=== PATIENT | male | born 1960 | race African-American/Black ===

== ENCOUNTER 2021-01-04 08:46 | Emergency (ER) | payer MEDICARE, MEDICAID ==
[~2021-01-04] VITALS: Ht 177.8 cm; Wt 87.0 kg
[2021-01-04 09:10] VITALS: BP 138/77
== END 2021-01-04 10:41 | disposition home or self-care (01) ==
LOC: ER 08:46
DX: Z13.9 Encounter for screening, unspecified (principal)
CPT/HCPCS: 99281

== ENCOUNTER 2021-06-08 04:27 | Emergency (ER) | payer MEDICARE, MEDICAID ==
[~2021-06-08] VITALS: Ht 172.7 cm; Wt 82.0 kg
[2021-06-08 05:53] LABS: EOSINOPHILS % 5.8 % (0.0-5.0); HEMATOCRIT. 41.9 % (42.0-52.0); HEMOGLOBIN. 14.5 g/dL (14.0-18.0); LYMPHOCYTES % 24.7 % (20.0-50.0); MEAN CORPUSCULAR HEMOGLOBIN 31.9 pg (28.0-32.0); MEAN CORPUSCULAR VOLUME 92.2 fL (80.0-94.0); MEAN PLATELET VOLUME 8.5 fl (7.4-10.4); MONOCYTES % 13.9 % (2.0-8.0); NEUTROPHILS % 54.6 % (40.0-76.0); PLATELET 330 x1000/uL (130-400); RED BLOOD CELL COUNT 4.55 mill/uL (4.7-6.1); RED CELL DISTRIBUTION WIDTH 13.8 % (11.6-14.6)
[2021-06-08 06:02] LABS: CHLORIDE 105 mEq/L (98-107)
[2021-06-08 07:15] VITALS: BP 122/88
== END 2021-06-08 07:17 | disposition home or self-care (01) ==
LOC: ER 04:27
DX: S00.01XA Abrasion of scalp, initial encounter (principal); S16.1XXA Strain of muscle, fascia and tendon at neck level, initial encounter; E89.0 Postprocedural hypothyroidism; Z87.828 Personal history of other (healed) physical injury and trauma; W07.XXXA Fall from chair, initial encounter; Y93.89 Activity, other specified; Y92.018 Other place in single-family (private) house as the place of occurrence of the external cause
CPT/HCPCS: 36415; 71045; 80053; 85025; 99285

== ENCOUNTER 2022-04-06 19:30 | Emergency (ER) | payer MEDICARE, MEDICAID ==
[~2022-04-06] VITALS: Ht 172.7 cm; Wt 100.0 kg
[2022-04-06 20:17] VITALS: BP 118/79
== END 2022-04-06 23:32 | disposition left against medical advice (07) ==
LOC: ER 19:30
DX: Z53.21 Procedure and treatment not carried out due to patient leaving prior to being seen by health care provider (principal)